=== PATIENT | male | born 1980 | race Hispanic/Latino ===

== ENCOUNTER 2017-07-10 18:08 | Emergency (ER) | payer SELFPAY ==
[2017-07-10] MEDS ORDERED: Adacel (T-DAP) 0.5 ML VIAL ONE (19:51)
--- NOTE | 2017-07-10 20:34 | RAD ---
RIGHT HAND THREE VIEWS: 07/10/17 HISTORY: Hand injury. An obliquely oriented fracture of the proximal aspect of the proximal phalanx of the little finger is noted. This is slightly oblique to transversely oriented fracture. It does not appear to have an int ra-articular component. IMPRESSION: Essentially nondisplaced proximal phalanx little finger fracture. POS: [facility]
== END 2017-07-10 21:32 | disposition home or self-care (01) ==
LOC: ERS 18:08
DX: S62.646A Nondisplaced fracture of proximal phalanx of right little finger, initial encounter for closed fracture (principal); S61.412A Laceration without foreign body of left hand, initial encounter; J45.909 Unspecified asthma, uncomplicated; V89.9XXA Person injured in unspecified vehicle accident, initial encounter
CPT/HCPCS: 29125; 90471; 90715

== ENCOUNTER 2017-07-17 07:47 | Day surgery (SDC) | payer OTHER, SELFPAY ==
[2017-07-13 14:49] VITALS: BMI 32.5
[2017-07-17] MEDS ORDERED: Albuterol Sulfate 1.25 MG/3 ML NEB ONE (08:25)
[2017-07-17] MEDS ORDERED: CEFAZOLIN/Water 2 GM/20 ML SYRINGE ONE (08:42)
[2017-07-17] MEDS ORDERED: Lidocaine 1% w/Epinephrine 1:200K 30 ML VIAL ONE (09:39)
[2017-07-17] MEDS ORDERED: Bupivacaine 0.25% HCL 30 ML VIAL ONE (09:39)
[2017-07-17] MEDS ORDERED: Fentanyl 100 MCG/2 ML VIAL ONE ×2 (10:11→11:19)
[2017-07-17] MEDS ORDERED: traMADol HCl 50 MG TAB ONE (12:28)
--- NOTE | 2017-07-17 14:15 | OP ---
DATE OF PROCEDURE: 07/17/2017 PREOPERATIVE DIAGNOSIS: Right small finger P1 fracture flexion deformity. POSTOPERATIVE DIAGNOSIS: Right small finger P1 fracture flexion deformity. PROCEDURES PERFORMED: 1. Closed reduction and percutaneous pinning of P1 right small finger shaft fracture. 2. Short arm splint. STAFF: Zack Adams M.D. MULTIFOCAL BUTTON INSPECTOR: None. ANESTHESIOLOGIST: Jai Campos M.D. The patient received LMA. ESTIMATED BLOOD LOSS: Less than 5 mL. TOURNIQUET TIME: None. IMPLANTS: A 0.045 K-wire x2 ANTIBIOTICS: Ancef 2 grams. COMPLICATIONS: None. HISTORY OF PRESENT ILLNESS: Mr. Castle is a 37-year-old male, who presents with a right small finger P1 fracture. The patient had a 30-degree deformity. I discussed with him undergoing an open versus closed reduction and percutaneous pinning of small finger. Discussed the risks and benefits of surgery to include pain, scar, bleeding, infection, damage to vital structures, decreased range of motion or strength, failure of procedure, and continued pain despite surgical intervention, loss of range of motion, loss of function, loss of life or limb. He understood the risks and benefits and elected to proceed. Time out was performed designating the patent's right upper extremity as the operative site based on sight, consents, and markings. PROCEDURE NOTE: After completion of timeout, the patient's right upper extremity was prepped and draped in sterile fashion. No tourniquet was brought up. The patient received antibiotic Ancef preoperatively. I took a 0.045 K-wire under fluoroscopic guidance, placed it in the proximal segment on the ulnar side and placed it into the fracture fragment. I then helped with extended position, placed the patient in a flexed position bringing a force from the ulnar side to position the pin. I did pass a couple of times to get the position that I wanted to. I then placed a second pin more distally in the distal segment from distal to proximal through the ulnar border of the shaft, pinned it and took AP , lateral, and oblique radiographs, I had improved the patient's extension and improved the patient's step off and I improved the patient's overall alignment in AP. I was pleased with the patient's position as it was difficult due to the size of his hand to perfectly image his T1, but I felt that opening would not improve overall function and cause further damage to the patient's extensor mechanism. The patient was then placed in an ulnar gutter splint in resting neutral position. The tourniquet was brought up. The patient was sent to PACU. He will be discharged home with pain medication and will follow up with him in about 2 weeks to take the pins out at 3 weeks, begin range of motion. MARIA DEL ROSARIO
[2017-07-17] MEDS ORDERED: Dexamethasone 20 MG/5 ML VIAL ONE (16:19)
[2017-07-17] MEDS ORDERED: Ondansetron HCl/PF 4 MG/2 ML Vial ONE (16:19)
[2017-07-17] MEDS ORDERED: Ketorolac Tromethamine 30 MG/ML VIAL ONE (16:19)
[2017-07-17] MEDS ORDERED: Propofol 200 MG/20 ML VIAL ONE (16:19)
--- NOTE | 2017-07-19 09:41 | RAD ---
RADIOGRAPH RIGHT 5TH DIGIT 3 VIEWS: DATE: 07/17/17. TIME: 10:44 a.m. HISTORY: A 37-year-old male with traumatic fracture of 5th proximal phalanx. COMPARISON: 07/10/17 hand radiograph. FINDINGS: Small field of view fluoroscopic spot images obtained with C-arm demonstrate interval placement of 2 K wires, traversing the oblique, mildly displaced fracture of the proximal metaphysis of the 5th prox imal phalanx. IMPRESSION: Ongoing pin fixation of the oblique fracture at the proximal metaphysis of 5th proximal phalanx. POS: [facility]
== END 2017-07-17 13:00 | disposition home or self-care (01) ==
LOC: SDC 07:47
PROVIDERS: ATTEND Orthopaedic Surgery
PROC: 0PST34Z Reposition Right Finger Phalanx with Internal Fixation Device, Percutaneous Approach (ICD-10-PCS; principal; 2017-07-17)
DX: S62.616A Displaced fracture of proximal phalanx of right little finger, initial encounter for closed fracture (principal); Z79.2 Long term (current) use of antibiotics; Z91.013 Allergy to seafood
CPT/HCPCS: 76001; 96374; J1100; J1885; J2405; J2704; J3010; S0020

== ENCOUNTER 2021-12-26 11:04 | Emergency (ER) | payer OTHER | END 2021-12-26 12:39 | disposition home or self-care (01) | LOC: ERS 11:04 | DX: M54.41 Lumbago with sciatica, right side (principal) | CPT/HCPCS: 99282 ==

== ENCOUNTER 2022-12-16 11:02 | Emergency (ER) | payer SELFPAY | END 2022-12-16 11:36 | disposition home or self-care (01) | LOC: ERS 11:02 | DX: S61.217D Laceration without foreign body of left little finger without damage to nail, subsequent encounter (principal); W26.8XXD Contact with other sharp object(s), not elsewhere classified, subsequent encounter ==

== ENCOUNTER 2024-04-22 07:00 | Emergency (ER) | payer SELFPAY ==
[2024-04-22] MEDS ORDERED: Orphenadrine Citrate 60 MG/2 ML VIAL ONE (07:46)
[2024-04-22] MEDS ORDERED: Ketorolac Tromethamine 30 MG (1 mL) VIAL ONE ×2 (07:46→07:47)
[2024-04-22] MEDS ORDERED: Lidocaine 4% Patch ONE (07:46)
== END 2024-04-22 08:58 | disposition home or self-care (01) ==
LOC: ERS 07:00
DX: M54.41 Lumbago with sciatica, right side (principal)
CPT/HCPCS: 72100; 96372; J1885; J2360